=== PATIENT | male | born 1985 | race Caucasian/White ===

== ENCOUNTER 2024-03-09 01:50 | Emergency (ER) | payer OTHER ==
[~2024-03-09] VITALS: Ht 167.6 cm; Wt 156.0 kg
[2024-03-09 02:11] VITALS: BP 137/88; PULSE 104; RESP 18; TEMP 98.1; O2SAT 98
[2024-03-09] MEDS ORDERED: IBUP-1456 PO (04:23)
[2024-03-09] MEDS ORDERED: AMOX875T4 PO (04:23)
== END 2024-03-09 04:39 | disposition home or self-care (01) ==
LOC: ER 01:50
DX: S61.214A Laceration without foreign body of right ring finger without damage to nail, initial encounter (principal); S61.236A Puncture wound without foreign body of right little finger without damage to nail, initial encounter; F17.210 Nicotine dependence, cigarettes, uncomplicated; Z79.899 Other long term (current) drug therapy; W54.0XXA Bitten by dog, initial encounter; Y93.89 Activity, other specified; Y92.89 Other specified places as the place of occurrence of the external cause; Y99.8 Other external cause status
CPT/HCPCS: 12001; 73130